=== PATIENT | male | born 1960 | race Caucasian/White ===

== ENCOUNTER → 2017-05-24 | Outpatient (CLI) | payer OTHER | END | disposition home or self-care (01) | LOC: KCIC CT 08:23 | DX: J44.9 Chronic obstructive pulmonary disease, unspecified (principal); Z87.891 Personal history of nicotine dependence; J98.4 Other disorders of lung; J84.10 Pulmonary fibrosis, unspecified | CPT/HCPCS: 71250 ==

== ENCOUNTER → 2017-08-07 | Outpatient (CLI) | payer OTHER | END | disposition home or self-care (01) | LOC: KCIC 15:03 | DX: M79.672 Pain in left foot (principal) | CPT/HCPCS: 73630 ==

== ENCOUNTER → 2017-09-07 | Day surgery (SDC) | payer OTHER ==
[~2017-09-07] MED LIST: LIDOCAINE 1% PF 2 ML VIAL. ID; LIDOCAINE 2% PF Vial for OR 5 ML VIAL.; MORPHINE SULFATE 4 MG/ML DISP.SYRIN. IV; ONDANSETRON PF 4 MG/2 ML VIAL. IV; PROCHLORPERAZINE 10 MG/2 ML VIAL. IV; PROPOFOL 40 ML IV; fentaNYL PF VIAL 100 MCG/2 ML VIAL IV
[2017-09-07] MEDS: IV RINGERS,LACTATED 1000ML 1,000 ML IV (12:30)
== END | disposition home or self-care (01) ==
LOC: ENDOS 11:56
DX: Z09 Encounter for follow-up examination after completed treatment for conditions other than malignant neoplasm (principal); Z86.010 Personal history of colon polyps; K64.0 First degree hemorrhoids; K63.5 Polyp of colon; F32.9 Major depressive disorder, single episode, unspecified; E78.00 Pure hypercholesterolemia, unspecified; K21.9 Gastro-esophageal reflux disease without esophagitis; F41.9 Anxiety disorder, unspecified; M19.90 Unspecified osteoarthritis, unspecified site; Z83.71 Family history of colonic polyps; F17.210 Nicotine dependence, cigarettes, uncomplicated; Z79.899 Other long term (current) drug therapy; Z90.49 Acquired absence of other specified parts of digestive tract; Z98.890 Other specified postprocedural states
CPT/HCPCS: 45385; J2704

== ENCOUNTER → 2019-11-14 | Outpatient (CLI) | payer MEDICAID, OTHER ==
[2017-09-07 14:13] VITALS: BP 143/77
[~2019-11-14] MED LIST changes: +ASPI-482 PO; +BENZ0.5T32 PO; +BUSP15TA PO; +CELE100C PO; +CITA40TA5 PO; +GABA-689 PO; +HYDR-2765 PO; +HYDR50TA PO; -LIDOCAINE 1% PF 2 ML VIAL. ID; -LIDOCAINE 2% PF Vial for OR 5 ML VIAL.; +LOVA20TA2 PO; +MIRT15TA3 PO; +MIRT30TA3 PO; -MORPHINE SULFATE 4 MG/ML DISP.SYRIN. IV; +MULT-18 PO; +OMEP40CA45 PO; -ONDANSETRON PF 4 MG/2 ML VIAL. IV; -PROCHLORPERAZINE 10 MG/2 ML VIAL. IV; -PROPOFOL 40 ML IV; +QUET200T PO; -fentaNYL PF VIAL 100 MCG/2 ML VIAL IV
--- NOTE | 2019-11-14 13:00 | KCIC ---
EXAM: CT low dose lung cancer screening. HISTORY: Cigarette smoking history. TECHNIQUE: Computed tomographic images of the chest were obtained without contrast. Multiplanar reformatting was performed. *One or more of the following individualized dose reduction techniques were utilized for this examination: 1. Automated exposure control. 2. Adjustment of the mA and/or kV according to patient size. 3. Use of iterative reconstruction technique. COMPARISON: 05/24/2017. FINDINGS: There is pulmonary emphysema with subpleural bleb formation. There is increased linear atelectasis or scarring within the right lower lobe in medial right middle lobe. There is bilateral basilar and posterior dependent atelectasis. There is a small amount of aspirated mucus within the right mainstem bronchus. There is slight central bronchial wall thickening. No infiltrate or suspicious nodule is seen. The heart is normal in size. There is no lymphadenopathy. There is a tiny cyst within the inferior right hepatic lobe. No suspicious osseous lesion is seen. IMPRESSION: 1. No suspicious pulmonary nodule. Lung RADS category 1. 2. Pulmonary emphysema and slight central bronchial wall thickening suggesting the sequela of prior bronchitis. No acute infiltrate is seen. 3. Increase in linear atelectasis or scarring within the right middle and lower lobes. Electronically signed by: Bel De Leon MD (11/14/2019 12:57 PM) [id number]
== END | disposition home or self-care (01) ==
LOC: KCIC CT 12:20
PROVIDERS: ATTEND Family Medicine
DX: Z87.891 Personal history of nicotine dependence (principal); J44.9 Chronic obstructive pulmonary disease, unspecified; K76.89 Other specified diseases of liver
CPT/HCPCS: G0297